=== PATIENT | female | born 1990 | race Asian ===

== ENCOUNTER 2017-11-28 06:15 | Inpatient (IN) | payer OTHER ==
[2017-11-28] MEDS ORDERED: ELECTROLYTE-148 SOLN 500 ML IV ONE ×2 (06:30→07:00)
[2017-11-28] MEDS ORDERED: CITRIC ACID/SODIUM CITRATE 30 ML UNIT-DOSE CUP PO ONE (06:30)
[2017-11-28 06:40] VITALS: BMI 42.3
[2017-11-28] MEDS ORDERED: morphine SULFATE/Preservative Free 0.5 MG/ML (1cc Syringe) ONE (08:17)
[2017-11-28] MEDS ORDERED: ceFAZolin SODIUM 1 GM VIAL ONE (08:18)
--- NOTE | 2017-11-28 08:24 | HP ---
Past Medical History - Primary Care Physician PCP:: Shaquille German - Admission Chief Complaint: 39 weeks, previous c/s, , GDM, for repeat c/s History of Present Illness: 27 yo f g [id number] 39 weeks, with previous c/s . GDM,on glyburide , bs controlled requesting repeat c/s , risks , and ulternatives explained, cx clp vx -3 mi, fhr cat1 History Source: Patient Limitations to Obtaining History: No Limitations - Past Medical History ...: 3 ...Para: 2 ...Term: 2 ...LMP: 02/22/17 ... Weeks Gestation by Dates: 39.6 ...EDC by Dates: 11/29/17 Dermatology: Yes: Eczema (Gestational Diabetes on Glyburide) - Past Surgical History Past Surgical History: Yes: Hx Myomectomy: No Hx Transabdominal Cerclage: No - Smoking History Smoking history: Never smoked Have you smoked in the past 12 months: No - Alcohol/Substance Use Hx Alcohol Use: No History of Substance Use: reports: None - Social History History of Recent Travel: No Home Medications - Allergies Allergies/Adverse Reactions: Allergies Allergy/AdvReac Type Severity Reaction Status Date / Time No Known Allergies Allergy Verified 02/14/16 17:03 - Home Medications Home Medications: Ambulatory Orders Glyburide 2.5 mg PO DAILY 02/14/16 Vit/Iron Fum/Folic AC [ Tablet] 1 each PO DAILY 02/14/16 Ibuprofen [Motrin -] 600 mg PO QID #28 tablet 02/15/16 Review of Systems - Review of Systems Constitutional: reports: No Symptoms Eyes: reports: No Symptoms HENT: reports: No Symptoms Neck: reports: No Symptoms Cardiovascular: reports: No Symptoms Respiratory: reports: No Symptoms Gastrointestinal: reports: No Symptoms Genitourinary: reports: No Symptoms Breasts: reports: No Symptoms Reported Musculoskeletal: reports: No Symptoms Integumentary: reports: No Symptoms Neurological: reports: No Symptoms Endocrine: reports: No Symptoms Hematology/Lymphatic: reports: No Symptoms Psychiatric: reports: No Symptoms Physical Exam - Maternity Vital Signs: Vital Signs Temperature 98.4 F 11/28/17 06:54 Pulse Rate 89 11/28/17 06:54 Respiratory Rate 20 11/28/17 06:54 Blood Pressure 113/67 11/28/17 06:54 O2 Sat by Pulse Oximetry (%) Constitutional: Yes: Well Nourished, No Distress, Calm Eyes: Yes: WNL, Conjunctiva Clear, EOM Intact HENT: Yes: WNL, Atraumatic, Normocephalic Neck: Yes: WNL, Supple, Trachea Midline Cardiovascular: Yes: WNL, Regular Rate and Rhythm Breast(s): Yes: WNL - Abdominal Exam/OB Fundal Height: 40 Number of Fetuses: Single Presentation: Vertex Contractions: Yes Regularity: Irritability Intensity: Unaware Monitor Mode: External Heart Rate Location: [facility] Category: I Accelerations: Uniform Decelerations: None - Vaginal Exam/OB Vaginal Bleediing: No Speculum Exam: No Dilatation (cm): closed Effacement (%): 0 Amniotic Membrane Status: Intact Presentation: Vertex/Position Station: -3 - Physical Exam Musculoskeletal: Yes: WNL Extremities: Yes: WNL Edema: LLE: Trace, RLE: Trace Deep Tendon Reflex Grade: Normal +2 Psychiatric: Yes: WNL Hemorrhage Risk Assessment - Risk Factors Medium Risk Factors: Yes: Prior , uterine surgery,or multiple laparotomies Risk Score: 1 Risk Level: Medium Risk Problem List - Problems (1) with 39 completed weeks gestation Code(s): Z3A.39 - 39 WEEKS GESTATION OF (2) Previous section complicating , antepartum condition or complication Code(s): O34.219 - MATERNAL CARE FOR UNSP TYPE SCAR FROM PREVIOUS DEL (3) Gestational diabetes mellitus (GDM) during controlled on oral hypoglycemic therapy Code(s): O24.415 - GESTATNL DIABETES IN PREG, CTRL BY ORAL HYPOGLYCEMIC DRUGS (4) Gestational diabetes mellitus (GDM) during controlled on oral hypoglycemic therapy Code(s): O24.415 - GESTATNL DIABETES IN PREG, CTRL BY ORAL HYPOGLYCEMIC DRUGS Assessment/Plan repeat c/s, rba discussed
[2017-11-28] MEDS ORDERED: PHENYLEPHRINE HCL 10 MG/1 ML SINGLE DOSE VIAL ONE (08:35)
[2017-11-28] MEDS ORDERED: OXYTOCIN 20 UNITS in 0.9% NS 20 UNIT/1,000 ML INFUS.BAG IV ONE ×2 (08:37→09:38)
[2017-11-28] MEDS ORDERED: MIDAZOLAM HCL 2 MG/2 ML SINGLE DOSE VIAL ONE ×3 (08:52→09:33)
[2017-11-28] MEDS ORDERED: KETAMINE HCL 500 MG/10 ML VIAL ONE (09:00)
[2017-11-28] MEDS ORDERED: SODIUM CHLORIDE 0.9% P/F 10 ML VIAL IJ ONE (09:00)
[2017-11-28] MEDS ORDERED: BENZOCAINE 28 GM HEMORRHOIDAL OINTMENT PR PRN (09:47)
[2017-11-28] MEDS ORDERED: diphenhydrAMINE HCL 25 MG CAPSULE (FP) PO PRN (09:47)
[2017-11-28] MEDS ORDERED: BENZOCAINE 20% 57 GM BOTTLE TP PRN (09:47)
[2017-11-28] MEDS ORDERED: WITCH HAZEL 50% (TUCKS) 40 PAD/JAR PAD TP PRN (09:47)
[2017-11-28] MEDS ORDERED: METHYLERGONOVINE MALEATE 0.2 MG/1 ML AMP IM PRN (09:47)
[2017-11-28] MEDS ORDERED: IBUPROFEN 800 MG/8 ML IJ IVPB PRN (09:47)
[2017-11-28] MEDS ORDERED: OXYTOCIN 20 UNITS in 0.9% NS 20 UNIT/1,000 ML INFUS.BAG IV SCH (10:00)
[2017-11-28] MEDS ORDERED: DEXTROSE 5%-LACTATED RINGERS 1,000 ML IV SCH (10:00)
[2017-11-28] MEDS ORDERED: ONDANSETRON 4 MG/2 ML VIAL IVPUSH PRN (10:16)
[2017-11-28] MEDS ORDERED: ACETAMINOPHEN 1000 MG/100 ML VIAL (NON FORMULARY) IVPB PRN (10:16)
[2017-11-28] MEDS ORDERED: IBUPROFEN 800 MG/8 ML IJ IVPB ONE (10:32)
[2017-11-28] MEDS: IBUPROFEN 800 MG/8 ML IJ IVPB PRN ×2 (10:45→17:38)
[2017-11-28] MEDS: CEFAZOLIN 1 GM/D5W 1 GM/50 ML BAG IVPB SCH ×2 (12:05→19:19)
[2017-11-28 12:50] LABS: COCAINE, UR NEGATIVE ng/ml (CUTOFF=300); METHADONE, UR NEGATIVE ng/ml (CUTOFF=300); OPIATES, URI NEGATIVE ng/ml (CUTOFF=300); PHENCYCLIDINE,URINE NEGATIVE ng/ml (CUTOFF=25); URINE AMPHETAMINES NEGATIVE ng/ml (CUTOFF=500); URINE BARBITURATES NEGATIVE ng/ml (CUTOFF=200)
[2017-11-28 12:53] LABS: URINE BENZODIAZEPINES POSITIVE ng/ml (CUTOFF=200)
--- NOTE | 2017-11-28 14:14 | OP ---
DATE OF OPERATION: 11/28/2017 PREOPERATIVE DIAGNOSIS: 39 weeks, previous cesarian section, request of repeat cesarian section. POSTOPERATIVE DIAGNOSIS: 39 weeks, previous cesarian section, request of repeat cesarian section. PROCEDURE: Repeat low segment transverse section. SURGEON: Sixto German MD SENIOR PROJECT LEADER/TEAM LEAD: REENA Squires ANESTHESIA: Spinal anesthesia, Nacho Barfield MD ESTIMATED BLOOD LOSS: 700 mL. DESCRIPTION OF PROCEDURE: Patient was taken to the operating room, had adequate spinal anesthesia. Abdomen and perineum were prepped and draped. A Pfannenstiel abdominal skin incision was made. Patient had complained of pain and was uncomfortable during the because anesthesia did not work well. Abdominal wall was cut layer by layer, anterior peritoneum was exposed and incised. Upon entering the abdominal cavity, lower uterine segment was identified and ureterovesical fold of peritoneum was established. Bladder was pushed down. A low transverse uterine incision was made. It was difficult because of the patient being uncomfortable and the tightness of the muscle and abdominal wall tissue. Live baby was delivered without any difficulty, live baby boy, ROT position. Apgars 9, 9. Placenta was delivered manually. Uterine cavity was cleaned of all remaining tissue. Uterine incision was closed in 2 layers, first layer with 0 Biosyn continuous suture, the second layer with 0 Biosyn imbricating the first layer. Bladder flap was closed with 0 Biosyn continuous suture. Both tubes and ovaries were checked and were normal. No active bleeding was seen. All the lap pad, sponge, needle, and instrument counts were correct. Then the peritoneum was closed with 0 Biosyn continuous suture. Muscles were brought together with interrupted sutures of 0 Biosyn. Fascia was closed with 0 Biosyn continuous suture, subcutaneous fat with interrupted suture of 0 Biosyn, and skin was closed with oracio. Patient tolerated the procedure well, left the OR in good condition. SIXTO GERMAN M.D. [id number]
[2017-11-29] MEDS: IBUPROFEN 800 MG/8 ML IJ IVPB PRN ×2 (00:42→05:32)
[2017-11-29 08:10] LABS: BASO % 0.7 % (0-2.0); HEMATOCRIT 28.9 % (32.4-45.2); HEMOGLOBIN 9.2 GM/dL (10.7-15.3); LYMPH % 11.3 % (8-40); MCH 22.7 pg (25.7-33.7); MCHC 31.7 g/dl (32.0-36.0); MEAN CELL VOLUME 71.5 fl (80-96); MEAN PLT VOLUME 8.4 fl (7.5-11.1); MONO % 2.8 % (3.8-10.2); NEUT % 83.2 % (42.8-82.8); PLATELET COUNT 174 K/MM3 (134-434); RBC 4.04 M/mm3 (3.60-5.2); RDW 16.9 % (11.6-15.6); WHITE BLOOD COUNT 11.8 K/mm3 (4.0-10.0)
--- NOTE | 2017-11-29 08:12 | PN ---
Progress Note (short form) - Note Progress Note: POD #1 - s/p repeat under spinal anesthesia with duramorph. VSS. Pt. doing well, resting comfortably in bed getting ready to eat breakfast. No complaints. Good pain control. No apparent anesthetic complications noted. Continue current care.
[2017-11-29] MEDS ORDERED: BISACODYL 10 MG SUPP.RECT RC PRN (09:47)
[2017-11-29] MEDS: ENOXAPARIN NA (PORCINE) 40 MG/0.4 ML DISP.SYRIN SQ SCH (10:00)
[2017-11-29] MEDS ORDERED: DIPHTH,PERTUSS(ACELL),TET 0.5 ML DISP.SYRIN IM ONE (10:00)
[2017-11-29] MEDS: oxyCODONE HCL 5 MG TABLET PO PRN ×3 (12:06→20:32)
[2017-11-29] MEDS: SIMETHICONE 80 MG TAB.CHEW (FP) PO PRN ×3 (12:06→20:32)
[2017-11-29] MEDS: IBUPROFEN 600 MG TABLET (FP) PO PRN ×3 (12:07→20:33)
[2017-11-29] MEDS ORDERED: ACETAMINOPHEN 325 MG TABLET (FP) ONE (13:51)
[2017-11-29] MEDS: ACETAMINOPHEN 325 MG TABLET (FP) PO PRN (14:59)
--- NOTE | 2017-11-29 15:07 | PN ---
Post Progress Note - Subjective Subjective: 27 yo Para 3, status post repeat , seen and evaluated. Doing well. Post Day: 1 Type of Delivery: Repeat C/S Vital Signs: Vital Signs Temperature 98.4 F 11/29/17 10:00 Pulse Rate 89 11/29/17 10:00 Respiratory Rate 20 11/29/17 10:00 Blood Pressure 121/75 11/29/17 10:00 O2 Sat by Pulse Oximetry (%) 99 11/28/17 11:00 Breast Exam: Yes: Soft Uterus: Yes: Fundus Firm Incision: Yes: Dressing dry and intact Abdomen/GI: Yes: Abdomen soft, Tolerating PO Lochia: Yes: Rubra Lochia, amount: Small Extremities: Yes: Calves non-tender Perineum: Yes: Intact Activity: Ambulating - Labs Labs: CBC WBC 11.8 K/mm3 (4.0-10.0) H 11/29/17 07:45 RBC 4.04 M/mm3 (3.60-5.2) 11/29/17 07:45 Hgb 9.2 GM/dL (10.7-15.3) L 11/29/17 07:45 Hct 28.9 % (32.4-45.2) L 11/29/17 07:45 MCV 71.5 fl (80-96) L 11/29/17 07:45 MCH 22.7 pg (25.7-33.7) L 11/29/17 07:45 MCHC 31.7 g/dl (32.0-36.0) L 11/29/17 07:45 RDW 16.9 % (11.6-15.6) H 11/29/17 07:45 Plt Count 174 K/MM3 (134-434) D 11/29/17 07:45 MPV 8.4 fl (7.5-11.1) 11/29/17 07:45 Absolute Neuts (auto) 9.9 K/mm3 (1.5-8.0) H 11/29/17 07:45 Neutrophils % 83.2 % (42.8-82.8) H 11/29/17 07:45 Lymphocytes % 11.3 % (8-40) D 11/29/17 07:45 Monocytes % 2.8 % (3.8-10.2) L 11/29/17 07:45 Eosinophils % 2.0 % (0-4.5) 11/29/17 07:45 Basophils % 0.7 % (0-2.0) 11/29/17 07:45 Nucleated RBC % 0 % (0-0) 11/29/17 07:45 Problem List - Problems (1) Status post repeat low transverse section Code(s): Z98.891 - HISTORY OF UTERINE SCAR FROM PREVIOUS SURGERY Assessment/Plan Status post repeat Stable Ambulation Continue routine care
[2017-11-30] MEDS: IBUPROFEN 600 MG TABLET (FP) PO PRN ×4 (01:46→21:57)
[2017-11-30] MEDS: oxyCODONE HCL 5 MG TABLET PO PRN ×4 (01:46→21:56)
[2017-11-30] MEDS: SIMETHICONE 80 MG TAB.CHEW (FP) PO PRN ×4 (01:46→21:56)
--- NOTE | 2017-11-30 07:35 | PN ---
Progress Note (short form) - Note Progress Note: pod 2 doing well, no c/o , voids ok Last Vital Signs Temp Pulse Resp BP Pulse Ox 97.6 F 81 20 110/59 99 11/29/17 21:33 11/29/17 21:33 11/29/17 21:33 11/29/17 21:33 11/28/17 11:00 abdomen soft, no distension, no cva incision dry clean no calf tenderness plan ambulate, cbc in am Problem List - Problems (1) with 39 completed weeks gestation Code(s): Z3A.39 - 39 WEEKS GESTATION OF (2) Previous section complicating , antepartum condition or complication Code(s): O34.219 - MATERNAL CARE FOR UNSP TYPE SCAR FROM PREVIOUS DEL (3) Gestational diabetes mellitus (GDM) during controlled on oral hypoglycemic therapy Code(s): O24.415 - GESTATNL DIABETES IN PREG, CTRL BY ORAL HYPOGLYCEMIC DRUGS (4) Gestational diabetes mellitus (GDM) during controlled on oral hypoglycemic therapy Code(s): O24.415 - GESTATNL DIABETES IN PREG, CTRL BY ORAL HYPOGLYCEMIC DRUGS
[2017-11-30] MEDS: ENOXAPARIN NA (PORCINE) 40 MG/0.4 ML DISP.SYRIN SQ SCH (10:40)
[2017-11-30 16:05] VITALS: PULSE 92
[2017-11-30] MEDS: ACETAMINOPHEN 325 MG TABLET (FP) PO PRN (18:43)
[2017-11-30] MEDS ORDERED: SENNOSIDES/DOCUSATE COMBO (SENNA PLUS) TABLET (UD) PO PRN (22:00)
[2017-12-01] MEDS: ACETAMINOPHEN 325 MG TABLET (FP) PO PRN ×3 (00:06→11:36)
[2017-12-01] MEDS: oxyCODONE HCL 5 MG TABLET PO PRN ×2 (00:06→07:07)
[2017-12-01] MEDS: SIMETHICONE 80 MG TAB.CHEW (FP) PO PRN ×2 (07:10→11:36)
[2017-12-01 07:13] LABS: BASO % 0.6 % (0-2.0); EOS % 3.3 % (0-4.5); HEMATOCRIT 27.5 % (32.4-45.2); HEMOGLOBIN 8.8 GM/dL (10.7-15.3); LYMPH % 26.2 % (8-40); MCH 23.2 pg (25.7-33.7); MEAN CELL VOLUME 72.5 fl (80-96); MEAN PLT VOLUME 8.2 fl (7.5-11.1); MONO % 4.1 % (3.8-10.2); NEUT % 65.8 % (42.8-82.8); PLATELET COUNT 236 K/MM3 (134-434); RBC 3.79 M/mm3 (3.60-5.2); RDW 16.8 % (11.6-15.6); WHITE BLOOD COUNT 9.1 K/mm3 (4.0-10.0)
[2017-12-01 08:57] VITALS: BP 112/64; TEMP 98
[2017-12-01] MEDS: ENOXAPARIN NA (PORCINE) 40 MG/0.4 ML DISP.SYRIN SQ SCH (09:21)
[2017-12-01] MEDS: IBUPROFEN 600 MG TABLET (FP) PO PRN (11:35)
--- NOTE | 2017-12-01 16:25 | DS ---
Physical Exam-DEAN OF GRADUATE STUDIES Vital Signs: Vital Signs Temperature 98 F 12/01/17 08:55 Pulse Rate 92 H 12/01/17 08:55 Respiratory Rate 20 12/01/17 08:55 Blood Pressure 112/64 12/01/17 08:55 O2 Sat by Pulse Oximetry (%) 99 11/28/17 11:00 Constitutional: Yes: Well Nourished, No Distress, Calm Eyes: Yes: WNL, Conjunctiva Clear, EOM Intact HENT: Yes: WNL, Atraumatic, Normocephalic Neck: Yes: WNL, Supple, Trachea Midline Cardiovascular: Yes: WNL, Regular Rate and Rhythm Respiratory: Yes: WNL, Regular, CTA Bilaterally Gastrointestinal: Yes: WNL ...Rectal Exam: Yes: WNL Renal/: Yes: WNL ....Post : Yes: Uterus firm, Uterus non-tender, Slight lochia rubra Breast(s): Yes: WNL Musculoskeletal: Yes: WNL Extremities: Yes: WNL Integumentary: Yes: WNL Wound/Incision: Yes: Clean/Dry, Well Approximated, [place] Intact Neurological: Yes: WNL, Alert, Oriented ...Motor Strength: WNL Psychiatric: Yes: WNL, Alert, Oriented Labs: CBC, BMP 12/01/17 06:52 Delivery - Delivery Section: Repeat, Low Flap Transverse Type of Anesthesia: Spinal EBL (cc): 700 Delivery, Single - Stages of Labor Date of Delivery: 11/28/17 Time of Delivery: 08:58 Time Placenta Delivered: 08:59 Placenta: Yes: Expressed - Condition of Greens Planter/Senior Policy Associate Present: Yes Name: Celeste Melchor Infant Gender: Male Weight: 7 lb 9 oz Position: Right, OT Total Hours ROM (Hrs/Mins): 2 min - 1 Minute Total Score: 8 5 Minutes Total Score: 9 - Feeding Plan Initial Plan: Elected not to breastfeed exclusively throughout hospitalization Discharge Summary Reason For Visit: REPEAT Procedures: Principal: repeat lst c/s Hospital Course: no complication Condition: Good - Instructions Diet, Activity, Other Instructions: return to clinic in 1 week for oracio removal and 6 weeks for check. call [facility] for appointment. [phone] Disposition: HOME - Home Medications Comprehensive Discharge Medication List: Ambulatory Orders Glyburide 2.5 mg PO DAILY 02/14/16 Vit/Iron Fum/Folic AC [ Tablet] 1 each PO DAILY 02/14/16 Ibuprofen [Motrin -] 600 mg PO QID #28 tablet 02/15/16 Ibuprofen [Motrin Ib] 600 mg PO TID #20 tablet 12/01/17
--- NOTE | 2017-12-05 16:35 | PATH ---
Surgical Pathology Report Patient Name: [facility]. Rec. #: [id number] /Age/Gender: 1990 (Age: 27) / F Account: [id number] Location: [facility] OBS/ELECTRICAL DESIGNER DRAFTER Taken: 11/28/2017 Received: 11/29/2017 Reported: 12/05/2017 Physicians: Shaquille German M.D. Specimen(s) Received PLACENTA Clinical History Scheduled repeat Final Diagnosis PLACENTA: THIRD TRIMESTER PLACENTA WITH FOCAL INTRAPARENCHYMAL HEMORRHAGE (1 CM IN GREATEST DIMENSION). TRIVASCULAR CORD. MEMBRANES WITH NO DIAGNOSTIC ABNORMALITIES. Electronically Signed Fabby Julien M.D. Gross Description The specimen is received fresh labeled placenta and is a 531 gram, 15.5 x 12.5 x 4.0 cm. placenta with attached membranes and umbilical cord. The attached membranes are hooper, translucent with focal opacities and insert marginally. The umbilical cord measures 25 cm. in length and averages 1.1 cm. in diameter. The cord inserts eccentrically, 2 cm. to the nearest margin. No true knots or strictures are identified. Cut surface of the umbilical cord reveals 3 vessels. The surface is allred-blue with minimal fibrin deposition and appropriate caliber vessels. The maternal surface is red-brown with focal defects. Sectioning reveals a 1.0 cm in greatest dimension intraparenchymal lesion. The remaining placental parenchyma is red-brown and spongy. Reactor Kettle Operator sections are submitted in 4 cassettes as follows: 1-membrane roll and umbilical cord; 2-lesion; 3-4 full thickness sections of placenta. 12/04/2017 [facility]12/04/2017
== END 2017-12-01 13:20 | disposition home or self-care (01) | DRG 540 ==
LOC: JLDR 06:15 → J3W 12:13
PROVIDERS: ADMIT Obstetrics & Gynecology; ATTEND Obstetrics & Gynecology
PROC: 10D00Z1 Extraction of Products of Conception, Low, Open Approach (ICD-10-PCS; principal; 2017-11-28)
DX: O34.211 Maternal care for low transverse scar from previous cesarean delivery (principal); O24.415 Gestational diabetes mellitus in pregnancy, controlled by oral hypoglycemic drugs; Z3A.39 39 weeks gestation of pregnancy; Z37.0 Single live birth
CPT/HCPCS: 36415; 80307; 82962; 85025; 88307-TC; 90715

== ENCOUNTER 2017-12-10 20:13 | Emergency (ER) | payer OTHER ==
[2017-12-10 20:18] VITALS: BP 149/98; PULSE 86; TEMP 98.8; BMI 38.5
--- NOTE | 2017-12-10 20:25 | PDOC ---
History of Present Illness - General Chief Complaint: Vaginal Bleeding Stated Complaint: POST OPERATIVE PAIN Time Seen by Provider: 12/10/17 20:15 Past History - Past Medical History Allergies/Adverse Reactions: Allergies Allergy/AdvReac Type Severity Reaction Status Date / Time No Known Allergies Allergy Verified 12/10/17 20:16 Home Medications: Ambulatory Orders Glyburide 2.5 mg PO DAILY 02/14/16 Vit/Iron Fum/Folic AC [ Tablet] 1 each PO DAILY 02/14/16 Ibuprofen [Motrin -] 600 mg PO QID #28 tablet 02/15/16 Ibuprofen [Motrin Ib] 600 mg PO TID #20 tablet 12/01/17 Asthma: No Cancer: No Cardiac Disorders: No COPD: No Diabetes: Yes (gestational) HTN: No Seizures: No Thyroid Disease: No - Suicide/Smoking/Psychosocial Hx Smoking Status: No Smoking History: Never smoked Have you smoked in the past 12 months: No Hx Alcohol Use: No Drug/Substance Use Hx: No Substance Use Type: None Hx Substance Use Treatment: No *Physical Exam - Vital Signs Last Vital Signs Temp Pulse Resp BP Pulse Ox 98.8 F 86 20 149/98 100 12/10/17 20:16 12/10/17 20:16 12/10/17 20:16 12/10/17 20:16 12/10/17 20:16 *DC/Admit/Observation/Transfer - Referrals Referrals: Dionne Neumann [Primary Care Provider] - - Patient Instructions - Post Discharge Activity
--- NOTE | 2017-12-10 20:51 | PDOC ---
Rapid Medical Evaluation Chief Complaint: Vaginal Bleeding Time Seen by Provider: 12/10/17 20:15 Medical Evaluation: Allergies Allergy/AdvReac Type Severity Reaction Status Date / Time No Known Allergies Allergy Verified 12/10/17 20:16 Vital Signs Temp Pulse Resp BP Pulse Ox 98.8 F 86 20 149/98 100 12/10/17 20:16 12/10/17 20:16 12/10/17 20:16 12/10/17 20:16 12/10/17 20:16 12/10/17 20:50 The patient presents with a chief complaint of: post bleeding I have performed a brief in-person evaluation of this patient. Pertinent physical exam findings: vss, stable I have ordered the following: labs, type and screen The patient will proceed to the ED for further evaluation. Discharge Disposition - Referrals Referrals: Dionne Neumann [Primary Care Provider] - - Patient Instructions - Post Discharge Activity
[2017-12-10 21:09] LABS: HEMATOCRIT 33.4 % (32.4-45.2); HEMOGLOBIN 10.7 GM/dL (10.7-15.3); MEAN CELL VOLUME 71.8 fl (80-96); MEAN PLT VOLUME 8.5 fl (7.5-11.1); PLATELET COUNT 345 K/MM3 (134-434); RBC 4.65 M/mm3 (3.60-5.2); RDW 16.9 % (11.6-15.6); WHITE BLOOD COUNT 9.5 K/mm3 (4.0-10.0)
[2017-12-10 21:38] LABS: ALBUMIN 2.9 g/dl (3.4-5.0); ALK PHOS 135 U/L (45-117); ANION GAP 10 MMOL/L (8-16); BILIRUBIN,TOTAL 0.2 mg/dL (0.2-1); BLOOD UREA NITROGEN 12 mg/dL (7-18); CALCIUM 9.4 mg/dL (8.5-10.1); CHLORIDE 111 mmol/L (98-107); CO2 23 mmol/L (21-32); CREATININE 0.6 mg/dL (0.55-1.3); GLUCOSE,RANDOM 136 mg/dL (74-106); POTASSIUM 4.4 mmol/L (3.5-5.1); SGOT/AST 15 U/L (15-37); SGPT/ALT 20 U/L (13-61); SODIUM 145 mmol/L (136-145); TOT PROT 7.5 g/dl (6.4-8.2)
--- NOTE | 2017-12-10 21:47 | PDOC ---
History of Present Illness - General History Source: Patient Exam Limitations: No Limitations - History of Present Illness Initial Comments: 12/10/17 21:53 The patient is a 27 year old female with a past medical history of gestational diabetes and 2 c-sections (11/28, episiotomy) who presents to the emergency department for evaluation of vaginal bleeding. The patient reports vaginal bleeding with clots since 4am. She describes the vaginal bleeding as bright red in color, with dark colored clots. Patient reports associated symptoms of dysuria and abdominal pain. She describes the abdominal pain as crampy, localized at the incision site of prior , ranked 3/10 in severity. Patient states the pain is the same since her on 11/28/17. Denies any use of medications for the aforementioned symptoms. The patient denies chest pain, shortness of breath, headache, and dizziness. Denies fevers, chills, nausea, vomiting, diarrhea, and constipation. Denies hematuria and urinary urgency/frequency. Allergies: NKDA Social History: No reported alcohol, cigarette or drug use. Surgical History: C-sections EXIT BOOTH AGENT: Dr. German <Rena Glaser - Last Filed: 12/10/17 22:02> <Kendra Carlos - Last Filed: 12/10/17 22:08> - General Chief Complaint: Vaginal Bleeding Stated Complaint: POST OPERATIVE PAIN Time Seen by Provider: 12/10/17 20:15 Past History <Rena Glaser - Last Filed: 12/10/17 22:02> - Past Medical History Asthma: No Cancer: No Cardiac Disorders: No COPD: No Diabetes: Yes (gestational) HTN: No Seizures: No Thyroid Disease: No - Reproductive History Is Patient Now?: No - Suicide/Smoking/Psychosocial Hx Smoking Status: No Smoking History: Never smoked Have you smoked in the past 12 months: No Hx Alcohol Use: No Drug/Substance Use Hx: No Substance Use Type: None Hx Substance Use Treatment: No <Kendra Carlos - Last Filed: 12/10/17 22:08> - Past Medical History Allergies/Adverse Reactions: Allergies Allergy/AdvReac Type Severity Reaction Status Date / Time No Known Allergies Allergy Verified 12/10/17 20:16 Home Medications: Ambulatory Orders Glyburide 2.5 mg PO DAILY 02/14/16 Vit/Iron Fum/Folic AC [ Tablet] 1 each PO DAILY 02/14/16 Ibuprofen [Motrin -] 600 mg PO QID #28 tablet 02/15/16 Ibuprofen [Motrin Ib] 600 mg PO TID #20 tablet 12/01/17 Review of Systems - Review of Systems Able to Perform ROS?: Yes Comments:: CONSTITUTIONAL: Absent: fever, chills, diaphoresis, generalized weakness, malaise, loss of appetite HEENT: Absent: rhinorrhea, nasal congestion, throat pain, throat swelling, difficulty swallowing, mouth swelling, ear pain, eye pain, visual Changes CARDIOVASCULAR: Absent: chest pain, syncope, palpitations, irregular heart rate, lightheadedness , peripheral edema RESPIRATORY: Absent: cough, shortness of breath, dyspnea with exertion, orthopnea, wheezing, stridor, hemoptysis GASTROINTESTINAL: (+)Abdominal pain. Absent: abdominal distension, nausea, vomiting, diarrhea, constipation, melena, hematochezia GENITOURINARY: (+)Dysuria. (+)Vaginal bleeding with clots. Absent: frequency, urgency, hesitancy, hematuria, flank pain, genital pain MUSCULOSKELETAL: Absent: myalgia, arthralgia, joint swelling SKIN: Absent: rash, itching, pallor HEMATOLOGIC/IMMUNOLOGIC: Absent: easy bleeding, easy bruising, lymphadenopathy, frequent infections ENDOCRINE: Absent: unexplained weight gain, unexplained weight loss, heat intolerance, cold intolerance NEUROLOGIC: Absent: headache, focal weakness or paresthesias, dizziness, unsteady gait, seizure, mental status changes, bladder or bowel incontinence PSYCHIATRIC: Absent: anxiety, depression, suicidal or homicidal ideation, hallucinations. <Rena Glaser - Last Filed: 12/10/17 22:02> *Physical Exam - Vital Signs Last Vital Signs Temp Pulse Resp BP Pulse Ox 98.8 F 86 20 149/98 100 12/10/17 20:16 12/10/17 20:16 12/10/17 20:16 12/10/17 20:16 12/10/17 20:16 - Physical Exam Comments: GENERAL: Well developed, well nourished. Awake and alert. No acute distress. HEENT: Normocephalic, atraumatic. PERRLA, EOMI. No conjunctival pallor. Sclera are non- icteric. Moist mucous membranes. Oropharynx is clear. NECK: Supple. Full ROM. No JVD. Carotid pulses 2+ and symmetric, without bruits. No thyromegaly. No lymphadenopathy. CARDIOVASCULAR: Regular rate and rhythm. No murmurs, rubs, or gallops. Distal pulses are 2+ and symmetric. PULMONARY: No evidence of respiratory distress. Lungs clear to auscultation bilaterally. No wheezing, rales or rhonchi. ABDOMINAL: protuberant. no wound dehiscence and no purulence. No signs of cellulitis around the wound. Soft. Non-tender. No rebound or guarding. No organomegaly. Normoactive bowel sounds. PELVIC: (+)Mild pooling of blood in vaginal vault on speculum, no large clots. MUSCULOSKELETAL Normal range of motion at all joints. No bony deformities or tenderness. No CVA tenderness. EXTREMITIES: No cyanosis. No clubbing. No edema. No calf tenderness. SKIN: Warm and dry. Normal capillary refill. No rashes. No jaundice. NEUROLOGICAL: Alert, awake, appropriate. Cranial nerves 2-12 intact. No deficits to light touch and temperature in face, upper extremities and lower extremities. No motor deficits in the in face, upper extremities and lower extremities. Normoreflexic in the upper and lower extremities. Normal speech. Toes are down- going bilaterally. Gait is normal without ataxia. PSYCHIATRIC: Cooperative. Good eye contact. Appropriate mood and affect. <Rena Glaser - Last Filed: 12/10/17 22:02> - Vital Signs Last Vital Signs Temp Pulse Resp BP Pulse Ox 98.8 F 86 20 149/98 100 12/10/17 20:16 12/10/17 20:16 12/10/17 20:16 12/10/17 20:16 12/10/17 20:16 <Kendra Carlos - Last Filed: 12/10/17 22:08> ED Treatment Course - LABORATORY CBC & Chemistry Diagram: 12/10/17 20:53 12/10/17 20:53 - ADDITIONAL ORDERS Additional order review: Laboratory Results 12/10/17 12/10/17 20:53 20:53 Sodium 145 Potassium 4.4 Chloride 111 H Carbon Dioxide 23 Anion Gap 10 BUN 12 Creatinine 0.6 Creat Clearance w eGFR > 60 Random Glucose 136 H Calcium 9.4 Total Bilirubin 0.2 AST 15 ALT 20 Alkaline Phosphatase 135 H Total Protein 7.5 Albumin 2.9 L Blood Type Cancelled Antibody Screen Cancelled 12/10/17 20:53 RBC 4.65 MCV 71.8 L MCHC 32.0 RDW 16.9 H MPV 8.5 <Rena Glaser - Last Filed: 12/10/17 22:02> - LABORATORY CBC & Chemistry Diagram: 12/10/17 20:53 12/10/17 20:53 - ADDITIONAL ORDERS Additional order review: Laboratory Results 12/10/17 12/10/17 20:53 20:53 Sodium 145 Potassium 4.4 Chloride 111 H Carbon Dioxide 23 Anion Gap 10 BUN 12 Creatinine 0.6 Creat Clearance w eGFR > 60 Random Glucose 136 H Calcium 9.4 Total Bilirubin 0.2 AST 15 ALT 20 Alkaline Phosphatase 135 H Total Protein 7.5 Albumin 2.9 L Blood Type Cancelled Antibody Screen Cancelled 12/10/17 20:53 RBC 4.65 MCV 71.8 L MCHC 32.0 RDW 16.9 H MPV 8.5 <Kendra Carlos - Last Filed: 12/10/17 22:08> Medical Decision Making - Medical Decision Making 12/10/[address] Lewis at 21:44. <Rena Glsaer - Last Filed: 12/10/17 22:02> - Medical Decision Making reviewed labs hbg/hct have improved since her c section on 11/28/17, no need for transfusions chemisitries tta=570,pt recently stopped using her glyburide -pt to follow up with Dr Whitney at [address] [place] [address] surgical site well healed imp post c section vag bleeding 12/10/17 22:02 <Kendra Carlos - Last Filed: 12/10/17 22:08> *DC/Admit/Observation/Transfer - Attestations Scribe Attestion: Documentation prepared by Rena Glaser, acting as medical tech for Kendra Carlos MD. <Rena Glaser - Last Filed: 12/10/17 22:02> <Kendra Carlos - Last Filed: 12/10/17 22:08> Diagnosis at time of Disposition: Postoperative vaginal bleeding - Discharge Dispostion Disposition: HOME Condition at time of disposition: Stable - Referrals Referrals: Dionne Neumann [Primary Care Provider] - Shaquille German MD [Staff Physician] - - Patient Instructions Printed Discharge Instructions: DI for Vaginal Bleeding Additional Instructions: please follow up with Dr German at [address] [place] [address] - Post Discharge Activity
== END 2017-12-10 22:34 | disposition home or self-care (01) ==
LOC: JER 20:13
DX: G89.18 Other acute postprocedural pain (principal)
CPT/HCPCS: 36415; 80053; 85027; 99284-25

== ENCOUNTER 2021-07-18 17:38 | Emergency (ER) | payer OTHER ==
[2021-07-18 18:12] VITALS: BMI 40.3
[2021-07-18] MEDS ORDERED: SODIUM CHLORIDE 0.9% 500 ML INFUS.BAG IV ONE (18:25)
[2021-07-18] MEDS ORDERED: KETOROLAC TROMETHAMINE 30 MG/1 ML VIAL IVPUSH ONE (18:25)
[2021-07-18] MEDS ORDERED: KETOROLAC TROMETHAMINE 30 MG/1 ML VIAL ONE (19:38)
[2021-07-18] MEDS ORDERED: ACETAMINOPHEN 1000 MG/100 ML BAG IVPB ONE (20:12)
[2021-07-18] MEDS ORDERED: ACETAMINOPHEN INJECTION 100 ML IVPB ONE (20:16)
[2021-07-18 21:02] VITALS: BP 105/64; PULSE 111; TEMP 99.2
[2021-07-18 22:09] LABS: INFLU A MOLECULAR Positive (Negative); INFLU B MOLECULAR Negative (Negative)
[2021-07-19 15:09] LABS: SARS-CoV-2 NAA Not Detected (Not Detected)
== END 2021-07-18 21:13 | disposition home or self-care (01) ==
LOC: JER 17:38
PROC: 3E0333Z Introduction of Anti-inflammatory into Peripheral Vein, Percutaneous Approach (ICD-10-PCS; principal; 2021-07-18)
PROC: 3E0333Z Introduction of Anti-inflammatory into Peripheral Vein, Percutaneous Approach (ICD-10-PCS; 2021-07-18)
DX: R50.9 Fever, unspecified (principal); J09.X2 Influenza due to identified novel influenza A virus with other respiratory manifestations
CPT/HCPCS: 71046-TC-FY; 84703; 87502; 99284-25; C9803-CS; U0003; U0005

== ENCOUNTER 2021-08-03 14:49 | Emergency (ER) | payer OTHER ==
[2021-08-03 15:13] VITALS: TEMP 98.7; BMI 40.3
[2021-08-03] MEDS ORDERED: ACETAMINOPHEN 500 MG TABLET (FP) PO ONE (15:33)
[2021-08-03] MEDS ORDERED: IBUPROFEN 600 MG TABLET (FP) PO ONE ×2 (15:35→15:49)
[2021-08-03] MEDS ORDERED: ACETAMINOPHEN 325 MG TABLET (FP) ONE (15:50)
[2021-08-03 18:02] VITALS: BP 103/68; PULSE 83
== END 2021-08-03 18:02 | disposition home or self-care (01) ==
LOC: JER 14:49
DX: M25.521 Pain in right elbow (principal)
CPT/HCPCS: 73070-TC-RT-FY; 93971; 99284-25

== ENCOUNTER 2021-09-14 14:58 | Emergency (ER) | payer OTHER ==
[2021-09-14 15:32] VITALS: TEMP 99.1; BMI 40.3
[2021-09-14] MEDS ORDERED: ACETAMINOPHEN 1000 MG/100 ML BAG IVPB ONE (15:56)
[2021-09-14] MEDS ORDERED: ACETAMINOPHEN INJECTION 100 ML IVPB ONE (16:02)
[2021-09-14] MEDS ORDERED: morphine CARPU-JECT 4 MG/1 ML DISP.SYRIN IVPUSH ONE ×2 (16:29→18:22)
[2021-09-14] MEDS ORDERED: morphine SULFATE 4 MG/ML VIAL ONE ×2 (16:31→18:32)
[2021-09-14 17:54] LABS: BASO % 0.3 % (0-2.0); EOS % 5.1 % (0-4.5); HEMOGLOBIN 11.7 GM/dL (10.7-15.3); LYMPH % 19.9 % (8-40); MCH 24.6 pg (25.7-33.7); MCHC 33.5 g/dl (32.0-36.0); MEAN CELL VOLUME 73.4 fl (80-96); MEAN PLT VOLUME 8.5 fl (7.5-11.1); MONO % 5.4 % (3.8-10.2); NEUT % 69.3 % (42.8-82.8); PLATELET COUNT 266 10^3/uL (134-434); RBC 4.77 M/mm3 (3.60-5.2); RDW 16.6 % (11.6-15.6); WHITE BLOOD COUNT 10.4 K/mm3 (4.0-10.0)
[2021-09-14 18:20] LABS: CALCIUM 8.7 mg/dL (8.5-10.1)
[2021-09-14 18:21] LABS: ALBUMIN 2.9 g/dl (3.4-5.0); BLOOD UREA NITROGEN 9.6 mg/dL (7-18)
[2021-09-14] MEDS ORDERED: SODIUM CHLORIDE 0.9% 500 ML INFUS.BAG IV ONE (18:22)
[2021-09-14 18:24] LABS: CREATININE 0.6 mg/dL (0.55-1.3)
[2021-09-14 18:26] LABS: BILIRUBIN,TOTAL 0.1 mg/dL (0.2-1); TOT PROT 7.3 g/dl (6.4-8.2)
[2021-09-14] MEDS ORDERED: LACTATED RINGERS SOLUTION 1000 ML INFUS.BAG IV ONE (19:47)
[2021-09-14] MEDS ORDERED: HYDROmorphone HCL CARPU-JECT 2 MG/1 ML DISP.SYRIN IVPUSH ONE ×2 (19:47→21:00)
[2021-09-14] MEDS ORDERED: HYDROmorphone HCl 2 MG/ML VIAL ONE ×2 (20:02→21:09)
[2021-09-14 22:02] LABS: EPI CELLS 7 /uL (0-25.1); HYALINE CASTS 0 /uL (0-3.1); PH,URINE 5.5 (5.0-8.0); URINE APPEARANCE CLOUDY; URINE BACTERIA 29 /uL (0-1359); URINE BILIRUBIN NEGATIVE (NEGATIVE); URINE COLOR RED; URINE GLUCOSE (UA) NEGATIVE (NEGATIVE); URINE KETONE NEGATIVE (NEGATIVE); URINE LEUK ESTERASE TRACE (NEGATIVE); URINE NITRITE NEGATIVE (NEGATIVE); URINE PROTEIN 2+ (NEGATIVE); URINE RBC 20334 /uL (0-23.9); URINE UROBILINOGEN 0.2 mg/dL (0.2-1.0); URINE WBC 30 /uL (0-25.8)
[2021-09-14] MEDS ORDERED: ONDANSETRON *ODT* 4 MG TABLET SL ONE (23:40)
[2021-09-14] MEDS ORDERED: ONDANSETRON *ODT* 4 MG TABLET ONE (23:41)
[2021-09-14 23:50] VITALS: BP 124/68; PULSE 84
== END 2021-09-15 | disposition home or self-care (01) ==
LOC: JER 14:58
PROC: 3E0333Z Introduction of Anti-inflammatory into Peripheral Vein, Percutaneous Approach (ICD-10-PCS; principal; 2021-09-14)
PROC: 3E033NZ Introduction of Analgesics, Hypnotics, Sedatives into Peripheral Vein, Percutaneous Approach (ICD-10-PCS; 2021-09-14)
PROC: 3E033NZ Introduction of Analgesics, Hypnotics, Sedatives into Peripheral Vein, Percutaneous Approach (ICD-10-PCS; 2021-09-14)
PROC: 3E033NZ Introduction of Analgesics, Hypnotics, Sedatives into Peripheral Vein, Percutaneous Approach (ICD-10-PCS; 2021-09-14)
PROC: 3E033NZ Introduction of Analgesics, Hypnotics, Sedatives into Peripheral Vein, Percutaneous Approach (ICD-10-PCS; 2021-09-14)
DX: O03.9 Complete or unspecified spontaneous abortion without complication (principal)
CPT/HCPCS: 36415; 76830-TC; 80053; 81003; 84702; 84703; 85025; 86850; 86900; 86901; 87086; 88305-TC; 99284-25; C9803-CS; Q0162; U0003; U0005

== ENCOUNTER 2023-07-14 00:08 | Emergency (ER) | payer OTHER ==
[2023-07-14 00:18] VITALS: TEMP 98; BMI 40.3
[2023-07-14 01:39] LABS: EPI CELLS 32 /uL (0-25.1); HYALINE CASTS 0 /uL (0-3.1); PH,URINE 5.5 (5.0-8.0); URINE APPEARANCE Error; URINE BACTERIA 1540 /uL (0-1359); URINE BILIRUBIN NEGATIVE (NEGATIVE); URINE COLOR YELLOW; URINE GLUCOSE (UA) NEGATIVE (NEGATIVE); URINE KETONE NEGATIVE (NEGATIVE); URINE LEUK ESTERASE NEGATIVE (NEGATIVE); URINE NITRITE NEGATIVE (NEGATIVE); URINE PROTEIN 1+ (NEGATIVE); URINE RBC 21 /uL (0-23.9); URINE UROBILINOGEN 0.2 mg/dL (0.2-1.0); URINE WBC 9 /uL (0-25.8)
[2023-07-14] MEDS ORDERED: CEPHALEXIN MONOHYDRATE 500 MG CAPSULE (UD) ONE (03:03)
[2023-07-14] MEDS: CEPHALEXIN MONOHYDRATE 500 MG CAPSULE (UD) PO ONE (03:08)
[2023-07-14] MEDS ORDERED: ACETAMINOPHEN 325 MG TABLET (FP) ONE (03:22)
[2023-07-14 03:24] LABS: HEMOGLOBIN 11.6 GM/dL (10.7-15.3); LYMPH % 27.9 % (8-40); MCHC 33.3 g/dl (32.0-36.0); MEAN CELL VOLUME 74.9 fl (80-96); MEAN PLT VOLUME 8.1 fl (7.5-11.1); MONO % 3.2 % (3.8-10.2); NEUT % 63.9 % (42.8-82.8); PLATELET COUNT 356 10^3/uL (134-434); RBC 4.67 M/mm3 (3.60-5.2); RDW 14.9 % (11.6-15.6); WHITE BLOOD COUNT 12.7 K/mm3 (4.0-10.0)
[2023-07-14] MEDS: ACETAMINOPHEN 325 MG TABLET (FP) PO ONE (03:24)
[2023-07-14 03:34] LABS: POTASSIUM 3.8 mmol/L (3.5-5.1)
[2023-07-14 03:35] LABS: CALCIUM 9.2 mg/dL (8.5-10.1)
[2023-07-14 03:36] LABS: BLOOD UREA NITROGEN 9.9 mg/dL (7-18)
[2023-07-14 03:39] LABS: CREATININE 0.5 mg/dL (0.55-1.3)
[2023-07-14 03:41] LABS: BILIRUBIN,TOTAL 0.2 mg/dL (0.2-1); TOT PROT 7.5 g/dl (6.4-8.2)
[2023-07-14 11:26] VITALS: BP 130/70; PULSE 88; RESP 18
== END 2023-07-14 11:26 | disposition home or self-care (01) ==
LOC: JER 00:08
DX: O26.891 Other specified pregnancy related conditions, first trimester (principal); R10.2 Pelvic and perineal pain; R10.32 Left lower quadrant pain; Z3A.01 Less than 8 weeks gestation of pregnancy
CPT/HCPCS: 36415; 76817-TC; 80053; 81003; 84702; 84703; 85025; 87086; 99284-25